=== PATIENT | female | born 1975 | race Caucasian/White ===

== ENCOUNTER 2018-10-01 10:11 | Day surgery (SDC) | payer BC ==
[2018-10-01] VITALS (8 sets, daily range): BP systolic 123–146; BP diastolic 53–82; PULSE 83–104; TEMP 97.5–99.3
[~2018-10-01] VITALS: Ht 168.9 cm; Wt 168.7 kg
[2018-10-01] MEDS ORDERED: CLARITIN-D 10 M1 T24 PO (11:09)
--- NOTE | 2018-10-01 11:10 | NUR ---
TO RM 3 AT 1036- CALL LIGHT IN REACH
--- NOTE | 2018-10-01 12:30 | NUR ---
RECEIVED IC- GREEN ORDERED. GIVEN AT THIS TIME PER INSTRUCTION OF OR.
[2018-10-01] MEDS ORDERED: PERCOCET 325 MG1 TA2 PO (15:39)
[2018-10-01] MEDS ORDERED: MOTRIN 600600 MG/TAB PO (15:40)
--- NOTE | 2018-10-01 16:00 | NUR ---
Patient returns to room 3 per cart from PACU and is awake and alert. IV fluids infusing left hand. Temp 97.8 and sats 94% on 4L per nasal cannula. Holden set dressing x4 on abdomen clean and dry. Healing incisions from previous attempted laparoscopic choley healing. Patient states that she is needing up to the bathroom. Ambulatory to the bathroom with two person assist. Patient is able to void and returns to room. Connected to monitor. States that she feels hungry and thirsty.
--- NOTE | 2018-10-01 16:15 | NUR ---
Attempting applesauce and sipping on juice. Room air sats 93%.
--- NOTE | 2018-10-01 16:20 | NUR ---
Patient has sudden onset of emesis of approximately 75cc's bile colored returns.
--- NOTE | 2018-10-01 16:25 | NUR ---
Medicated with Phenergan 12.5mg IV for mild nausea. States that she feels better after having emesis. IV fluids infusing and allowed to rest. Spouse in room.
--- NOTE | 2018-10-01 16:30 | NUR ---
Resting with eyes closed and spouse remains in the room. IV fluids continue to infuse.
--- NOTE | 2018-10-01 16:45 | NUR ---
Continues to rest with eyes closed. Offered no complaints of pain or futher nausea.
--- NOTE | 2018-10-01 17:00 | NUR ---
Continues to rest comfortabely with eyes closed and no complaints of pain or nausea.
--- NOTE | 2018-10-01 17:21 | NUR ---
Percocet 5mg one tab for complaints of incisional pain at 7/10. Eating applesauce and sipping juice.
--- NOTE | 2018-10-01 17:30 | NUR ---
Resting and will continue to monitor.
--- NOTE | 2018-10-01 17:50 | NUR ---
Patient states that she is having less pain and denies nausea. Tolerated cup of applesauce and drank juice without further nausea. States that she feels ready to be discharged. IV discontinued and site is free of redness. Incisional areas on abdomen dry and gore set covering sites.
--- NOTE | 2018-10-01 18:00 | NUR ---
Sitting on edge of bed and is able to dress self.
--- NOTE | 2018-10-01 18:07 | NUR ---
Given dismissal instructions and voices understanding of home cares and follow up in [place] on 10/14/18. Provided office number for questions and concerns. Given Motrin and Percocet scripts. Taken to the front door per wheelchair and dismissed to home per private vehicle driven by spouse. Instructions in hand.
== END 2018-10-01 18:07 | disposition home or self-care (01) ==
LOC: SDCO 10:11
DX: K80.10 Calculus of gallbladder with chronic cholecystitis without obstruction (principal); Z90.710 Acquired absence of both cervix and uterus; Z82.3 Family history of stroke; Z80.51 Family history of malignant neoplasm of kidney; Z80.8 Family history of malignant neoplasm of other organs or systems; Z83.3 Family history of diabetes mellitus; Z88.5 Allergy status to narcotic agent; E66.01 Morbid (severe) obesity due to excess calories; K75.81 Nonalcoholic steatohepatitis (NASH); Z68.43 Body mass index [BMI] 50.0-59.9, adult
CPT/HCPCS: J0690; J1100; J2405; J2550; J2704; J2710; J3010; J7120